=== PATIENT | male | born 1955 | race American Indian/Alaskan Native ===

== ENCOUNTER 2021-10-02 19:44 | Emergency (ER) | payer OTHER ==
[~2021-10-02 19:44] MED LIST: ATROPINE 0.1% (1 MG/10 ML) CARDIAC SYRINGE ONE; CALCIUM CHLORIDE 1,000 MG/10 ML SYRINGE IV ONE; EPINEPHrine 1 MG/10 ML SYRINGE ONE; SODIUM BICARB 8.4% 50 MEQ/50 ML SYRINGE IV ONE
--- NOTE | 2021-10-02 20:17 | Cat Scan Report ---
CT head/brain wo con INDICATION / CLINICAL INFORMATION: 66 years Male; CODE STROKE, LKW 1920, LEFT SIDE WEAKNESS SLURRED SPEECH, AMS [id number]. TECHNIQUE: Routine CT head without contrast. All CT scans at this location are performed using CT dos e reduction for ALARA by means of automated exposure control. Motion artifact present. COMPARISON: None. FINDINGS: BRAIN / INTRACRANIAL CONTENTS: Large lesion seen in the sella turcica, presumably representing a pitu itary macroadenoma, measuring 3 cm craniocaudally. There is mass effect on the optic chiasm. The lesi on also projects into the right sphenoid sinus, along its posterior, superior margin. No acute hemorrhage, mass effect, midline shift, hydrocephalus, or acute, large territorial infarct. No signs of significant atrophy or chronic infarct. No significant white matter abnormality seen. CRANIOCERVICAL JUNCTION: No significant abnormality. ORBITS: No significant abnormality of visualized orbits. SINUSES / MASTOIDS: Mild to moderate mucosal thickening seen in the maxillary antra. Small air-fluid levels noted. Mild to moderate mucosal thickening in the ethmoids. There is partial opacification of the left sphenoid sinus. Remote nasal bone and frontal process of the maxilla trauma suggested on the left. ADDITIONAL FINDINGS: None. IMPRESSION: 1. No focal intra-axial mass, hemorrhage, hydrocephalus, or acute, large territorial infarct. 2. 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 Follow-up with pre and postcontrast MRI of the pituitary, as clin ically warranted. 3. Sinus disease noted. Air-fluid levels seen in the maxillary antra, suggesting an acute component. CODE STROKE: Exam Completed (RADIATION THERAPY TECHNOLOGIST/CDT): 10/02/2021 7:02 PM Exam Reviewed (RADIATION THERAPY TECHNOLOGIST/CDT): 7:05 PM Time of Communication (RADIATION THERAPY TECHNOLOGIST/CDT): 7:09 PM Licensed Practitioner Receiving Report: Dr. Longoria Signer Name: Nikolas Hamilton MD, III Signed: 10/02/2021 8:13 PM Workstation Name: [email or web address]
--- NOTE | 2021-10-02 20:32 | Cat Scan Report ---
CT angio head INDICATION / CLINICAL INFORMATION: 66 years Male; CODE STROKE, LKW 1920, LEFT SIDE WEAKNESS SLURRED SPEECH, AMS [id number] 88ML OF OMNI PAQUE 350 GIVEN. TECHNIQUE: Thin cut axial images obtained through the head during IV bolus contrast administration. S agittal, coronal, and 3 plane MIP reconstructions performed by the technologist. NASCET type criteria used evaluate stenoses. Automated exposure control utilized for radiation reduction purposes. . COMPARISON: None available. FINDINGS: INTERNAL CAROTID ARTERIES: No significant narrowing appreciated. Mild atherosclerotic disease noted. VERTEBROBASILAR SYSTEM: No significant narrowing appreciated. DISTAL BRANCHES: Distal branches of the anterior, middle, and posterior cerebral arteries are fairly symmetric in appearance and number. ANEURYSM: None identified. ADDITIONAL FINDINGS: Large, presumed pituitary macroadenoma again noted. A portion of the lesion appe ars to project into the superior right sphenoid sinus and perhaps the left sphenoid sinus. IMPRESSION: 1. No significant narrowing or large vessel occlusion appreciated on this CTA of the head. Signer Name: Nikolas Hamilton MD, III Signed: 10/02/2021 8:27 PM Workstation Name: [email or web address] [id number]
--- NOTE | 2021-10-02 20:40 | Cat Scan Report ---
CT angio neck INDICATION / CLINICAL INFORMATION: 66 years Male; CODE STROKE, LKW 1920, LEFT SIDE WEAKNESS SLURRED SPEECH, AMS [id number], 88ML OF OMNI PAQUE 350. TECHNIQUE: Thin cut axial images obtained through the head during IV bolus contrast administration. S agittal, coronal, and 3 plane MIP reconstructions performed by the technologist. NASCET type criteria used evaluate stenoses. All CT scans at this location are performed using CT dose reduction for ALAR A by means of automated exposure control. . COMPARISON: None available. FINDINGS: ARCH: Normal aortic arch branching suggested. CAROTID ARTERIES: The visualized common and internal carotid arteries are patent. Atherosclerotic dis ease is seen in the carotid bifurcation region on the left, resulting in mild narrowing. There is vita e motion artifact which distorts imaging in this region. Carotid Doppler analysis may be of benefit, to ensure there is no significant narrowing present. Tortuous internal carotid arteries are noted-would question history of hypertension. VERTEBRAL ARTERIES: Slight left dominant vertebral system seen. Mild narrowing seen at the origin of the nondominant right vertebral artery. Tortuous vessels again noted-would question history of hypertension. ADDITIONAL FINDINGS: Mild disc disease seen at C4-5 and C3-4, which may encroach upon the cervical co rd. Borderline canal narrowing suggested at C4-C5. There may be significant disc disease at C6-7-left paracentral disc protrusion. Findings may affect the left anterior hemicord. Follow-up with MRI as c linically warranted. Moderate osseous foraminal narrowing on the right at C2-3, C3-4, and C6-7 from u ncinate and/or facet hypertrophy. Similar findings on the left at C6-7 from uncinate hypertrophy. IMPRESSION: 1. No definitive signs of hemodynamically significant stenosis appreciated. 2. There is motion artifact in the region of the carotid bifurcation on the right, which may partiall y obscure the proximal right ICA. Carotid Doppler analysis may be of benefit to ensure there is no si gnificant narrowing in this region. Signer Name: Nikolas Hamilton MD, III Signed: 10/02/2021 8:35 PM Workstation Name: [email or web address]
[2021-10-02 20:49] LABS: Hematocrit 32.8 % (35.5-45.6); Hemoglobin 11.6 gm/dl (11.8-15.2); Mean Corpuscular HGB Conc 35 % (32-34); Mean Corpuscular Volume 81 fl (84-94); Platelet Count 247 K/mm3 (140-440); Red Blood Count 4.05 M/mm3 (3.65-5.03); Red Cell Distribution Width 15.5 % (13.2-15.2)
[2021-10-02 21:14] LABS: Albumin 3.9 g/dL (3.9-5); Calcium 8.3 mg/dL (8.4-10.2)
[2021-10-02 21:34] LABS: INR 1.96 (0.87-1.13)
[2021-10-02 21:35] LABS: Partial Thromboplastin Time 33.4 Sec. (24.2-36.6); Thrombin Time 19.2 Sec. (15.1-19.6)
[2021-10-02] MEDS ORDERED: EPINEPHrine 30 MG/30 ML INJ IV ONE (21:42)
[2021-10-02 21:48] LABS: Band Neutrophils # (Manual) 0.1 K/mm3; Basophils % (Manual) 0 % (0.0-1.8); Eosinophils % (Manual) 0 % (0.0-4.3); Total Cells Counted 100
[2021-10-02 21:50] LABS: Platelet Estimate Consistent w Auto
--- NOTE | 2021-10-02 22:09 | XRay Report ---
CHEST 1 VIEW INDICATION: Post intubation. COMPARISON: None. FINDINGS: Support devices: Endotracheal tube tip is approximately 3-4 cm above the zuly. Heart: Stable. Lungs/Pleura: No acute pulmonary or pleural findings. IMPRESSION: 1. Endotracheal tube in satisfactory position. Signer Name: Solomon Madison MD Signed: 10/02/2021 10:05 PM Workstation Name: [id number]
[2021-10-02] MEDS ORDERED: MAGNESIUM SULFATE 1 GM in SODIUM CHLORIDE 0.9% 50 ML IV ONE (22:14)
--- NOTE | 2021-10-02 22:43 | Emergency Department Report ---
Blank Doc - Documentation Documentation: [facility] Consult Note # Demographics Consult Type: General Neurology Patient Location: Emergency Room First Name: agustin Last Name: cristy Date of : 1955 Age: 66 Gender: Male Facility: [facility] Time of Initial Page ( Time): 10/02/2021, 19:54 Time of Return Call ( Time): 10/02/2021, 19:54 # HPI History: 66yo M was found with AMS by . he is noted to be confused # Scores Time of exam and NIHSS ( Time): 10/02/2021, 20:00 Level of Consciousness 1a: [0] = Alert; keenly responsive LOC Questions 1b: [2] = Answers neither correctly LOC Commands 1c: [2] = Performs neither correctly Best Gaze 2: [0] = Normal Visual 3: [0] = No visual loss Facial Palsy 4: [0] = Normal symmetrical movements Motor Arm Left 5a: [2] = Some effort against gravity Motor Arm Right 5b: [2] = Some effort against gravity Motor Leg Left 6a: [3] = No effort against gravity Motor Leg Right 6b: [2] = Some effort against gravity Limb Ataxia 7: [0] = Absent Sensory 8: [0] = Normal Best Language 9: [2] = Severe aphasia Dysarthria 10: [2] = Severe dysarthria Extinction and Inattention 11: [0] = No abnormality NIHSS Total: 17 # Assessment Impression: Altered Mental Status # Plan Thrombolytic/Intervention: NOT IV Thrombolysis or IA Intervention candidate Thrombolytic/Intraarterial Exclusion: IV thrombolytic and IA intervention considered but not recommended as this patient's symptoms are not clinically consistent with an assumed diagnosis of stroke Other: I have discussed my recommendations with the referring provider Additional Recommendations: Metabolic and infectious evaluation recommended. If no cause found then MRI brain and EEG would be reasonable for next step in evaluation # Logistics Telemedicine: Interactive 2 way audio and visual telecommunication technology was utilized during this visit
[2021-10-02] MEDS ORDERED: NORepinephrine/NS 8 MG-250 ML 8 MG/250 ML INFUS..BTL IV SCH (23:00)
[2021-10-02] MEDS ORDERED: POTASSIUM CHLORIDE 10 MEQ 10 MEQ/100 ML BAG IV SCH (23:00)
--- NOTE | 2021-10-02 23:19 | Consultation ---
History of Present Illness Consult date: 10/02/21 Consult reason: cardiac arrest History of present illness: Called for left bundle branch on EKG post cardiac arrest in the ED. 66 year old male with unknown PMH presented via EMS for several days of weakness, altered mental status and initial concern for stroke. Patient was undergoing stroke work up in the ED when he had cardiac arrest (rhythm reported to be asystole). ROSC after 2-3 cycles of CPR. Work up revealed severe hypokalemia K 2.3, renal failure, troponin 0.19. Initial EKGs showed LBBB. I recommended repletion of potassium, repeat troponin and EKG. During this time, patient has multiple arrests with rhythm reported to be asystole. Post ROSC EKG after second arrest showed complete heart block, RBBB, and ST depressions in V2-V6 without ST elevation. While on the phone with the ED physician, patient had another cardiac arrest. On my arrival to the ED, patient had . He never had VT/VF and all the arrest rhythms were reported to be asystole. Suspect etiology of arrest was severe hypokalemia. Patient was too unstable to go to the microbiology lab manager for coronary evaluation with multiple arrests in the ED. William Carrington MD Interventional Cardiology Medications and Allergies Allergies Allergy/AdvReac Type Severity Reaction Status Date / Time No Known Allergies Allergy Unverified 10/02/21 20:22 Active Meds: Active Medications Potassium Chloride (Kcl 10meq/100ml) 10 meq in 100 mls @ 100 mls/hr IV Q1H EDIS Stop: 10/03/21 02:59 Magnesium Sulfate 1 gm/ Sodium (Chloride) 52 mls @ 52 mls/hr IV ONCE ONE Stop: 10/02/21 23:13 NORepinephrine/NS 8 MG-250 ML (Norepinephrine/Ns 8 Mg-250 Ml (Double Conc)) 8 mg in 250 mls @ 3.75 mls/hr IV TITRATE EDIS; Protocol Physical Examination Vital Signs Temp Pulse Resp BP Pulse Ox 98 F 90 20 195/78 95 10/02/21 19:44 10/02/21 19:44 10/02/21 19:44 10/02/21 19:44 10/02/21 19:44 Results 10/02/21 20:29 10/02/21 20:29 Cardiac Enzymes 08/07/22 Range/Units 20:29 AST 372 H (5-40) units/L CK-MB (CK-2) 100.0 H (0.0-4.0) ng/mL Coagulation 10/02/21 Range/Units 20:29 PT 25.3 H (12.2-14.9) Sec. INR 1.96 H (0.87-1.13) APTT 33.4 (24.2-36.6) Sec. CBC 10/02/21 Range/Units 20:29 WBC 13.7 H (4.5-11.0) K/mm3 RBC 4.05 (3.65-5.03) M/mm3 Hgb 11.6 L (11.8-15.2) gm/dl Hct 32.8 L (35.5-45.6) % Plt Count 247 (140-440) K/mm3 Comprehensive Metabolic Panel 10/02/21 Range/Units 20:29 Sodium 127 L (137-145) mmol/L Potassium 2.3 L* (3.6-5.0) mmol/L Chloride 85.7 L (98-107) mmol/L Carbon Dioxide 21 L (22-30) mmol/L BUN 63 H (9-20) mg/dL Creatinine 5.2 H (0.8-1.3) mg/dL Glucose 147 H (75-100) mg/dL Calcium 8.3 L (8.4-10.2) mg/dL AST 372 H (5-40) units/L ALT 101 H (7-56) units/L Alkaline Phosphatase 82 (35-129) units/L Total Protein 7.9 (6.3-8.2) g/dL Albumin 3.9 (3.9-5) g/dL
[2021-10-02 23:35] LABS: Chol/HDL Ratio 3.96 %
--- NOTE | 2021-10-02 23:41 | Emergency Department Report ---
ED Altered Mental Status HPI - General Chief Complaint: Neuro Symptoms/Deficit Stated Complaint: STROKE Time Seen by Provider: 10/02/21 19:45 Source: EMS Mode of arrival: Stretcher Limitations: Altered Mental Status - History of Present Illness Initial Comments: Patient is a 66-year-old male brought in from home by EMS for altered mental status. reports patient fell while in the restroom and had a fall and called out to her to help him up. States he was able to grab the side of the bathtub to help himself up and fell again and began to mumble. EMS noted patient altered with left-sided weakness upon arrival and suspected acute CVA. On arrival patient is altered without any focal deficits. - Related Data Allergies Allergy/AdvReac Type Severity Reaction Status Date / Time No Known Allergies Allergy Unverified 10/02/21 20:22 ED Review of Systems ROS: Stated complaint: STROKE Other details as noted in HPI Comment: Unobtainable due to pts medical conditions ED Past Medical Hx - Past Medical History Previous Medical History?: Yes Hx Hypertension: Yes - Surgical History Past Surgical History?: No - Social History Smoking Status: Never Smoker Substance Use Type: None ED Physical Exam - General Limitations: Altered Mental Status General appearance: other (Altered) - Head Head exam: Present: atraumatic, normocephalic - Eye Eye exam: Present: normal appearance, PERRL, EOMI - Respiratory Respiratory exam: Present: normal lung sounds bilaterally. Absent: respiratory distress - Cardiovascular Cardiovascular Exam: Present: regular rate, normal rhythm, normal heart sounds - GI/Abdominal GI/Abdominal exam: Present: soft. Absent: distended - Rectal Rectal exam: Present: deferred - Extremities Exam Extremities exam: Absent: pedal edema - Neurological Exam Neurological exam: Present: altered - Skin Skin exam: Present: warm, dry, intact, normal color ED Course Vital Signs 10/02/21 10/02/21 10/02/21 19:44 19:46 20:11 Temperature 98 F Pulse Rate 90 Respiratory 20 Rate Blood Pressure 195/78 O2 Sat by Pulse 95 96 98 Oximetry 10/02/21 20:15 Temperature Pulse Rate 89 Respiratory 15 Rate Blood Pressure 195/78 O2 Sat by Pulse 97 Oximetry - Lab Data Result diagrams: 10/02/21 20:29 10/02/21 20:29 Lab Results 10/02/21 10/02/2122 Range/Units 20:26 20:29 20:29 WBC 13.7 H (4.5-11.0) K/mm3 RBC 4.05 (3.65-5.03) M/mm3 Hgb 11.6 L (11.8-15.2) gm/dl Hct 32.8 L (35.5-45.6) % MCV 81 L (84-94) fl MCH 29 (28-32) pg MCHC 35 H (32-34) % RDW 15.5 H (13.2-15.2) % Plt Count 247 (140-440) K/mm3 Add Manual Diff Complete Total Counted 100 Seg Neutrophils % Monitoring Manager Seg Neuts % (Manual) 86.0 H (40.0-70.0) % Band Neutrophils % 1.0 % Lymphocytes % (Manual) 6.0 L (13.4-35.0) % Reactive Lymphs % (Man) 0 % Monocytes % (Manual) 7.0 (0.0-7.3) % Eosinophils % (Manual) 0 (0.0-4.3) % Basophils % (Manual) 0 (0.0-1.8) % Metamyelocytes % 0 % Myelocytes % 0 % Promyelocytes % 0 % Blast Cells % 0 % Nucleated RBC % Not Reportable Seg Neutrophils # Man 11.8 H (1.8-7.7) K/mm3 Band Neutrophils # 0.1 K/mm3 Lymphocytes # (Manual) 0.8 L (1.2-5.4) K/mm3 Abs React Lymphs (Man) 0.0 K/mm3 Monocytes # (Manual) 1.0 H (0.0-0.8) K/mm3 Eosinophils # (Manual) 0.0 (0.0-0.4) K/mm3 Basophils # (Manual) 0.0 (0.0-0.1) K/mm3 Metamyelocytes # 0.0 K/mm3 Myelocytes # 0.0 K/mm3 Promyelocytes # 0.0 K/mm3 Blast Cells # 0.0 K/mm3 WBC Morphology Not Reportable Hypersegmented Neuts Not Reportable Hyposegmented Neuts Not Reportable Hypogranular Neuts Not Reportable Smudge Cells Not Reportable Toxic Granulation Not Reportable Toxic Vacuolation Not Reportable Dohle Bodies Not Reportable Pelger-Huet Anomaly Not Reportable Tory Rods Not Reportable Platelet Estimate Consistent w auto Clumped Platelets Not Reportable Plt Clumps, EDTA Not Reportable Large Platelets Not Reportable Giant Platelets Not Reportable Platelet Satelliting Not Reportable Plt Morphology Comment Not Reportable RBC Morphology Not Reportable Dimorphic RBCs Not Reportable Polychromasia Not Reportable Hypochromasia Not Reportable Poikilocytosis Not Reportable Anisocytosis Not Reportable Microcytosis Not Reportable Macrocytosis Not Reportable Spherocytes Not Reportable Pappenheimer Bodies Not Reportable Sickle Cells Not Reportable Target Cells Not Reportable Tear Drop Cells Not Reportable Ovalocytes Not Reportable Helmet Cells Not Reportable Rai-[place] Bodies Not Reportable [address] Rings Not Reportable [place] Cells Not Reportable Bite Cells Not Reportable Crenated Cell Not Reportable Elliptocytes Not Reportable Acanthocytes (Spur) Not Reportable Rouleaux Not Reportable Hemoglobin C Crystals Not Reportable Schistocytes Not Reportable Malaria parasites Not Reportable Arun Bodies Not Reportable Hem Pathologist Commnt No PT 25.3 H (12.2-14.9) Sec. INR 1.96 H (0.87-1.13) APTT 33.4 (24.2-36.6) Sec. Thrombin Time 19.2 (15.1-19.6) Sec. Sodium (137-145) mmol/L Potassium (3.6-5.0) mmol/L Chloride (98-107) mmol/L Carbon Dioxide (22-30) mmol/L Anion Gap mmol/L BUN (9-20) mg/dL Creatinine (0.8-1.3) mg/dL Estimated GFR ml/min BUN/Creatinine Ratio % Glucose (75-100) mg/dL POC Glucose 136 H (70-105) mg/dL Calcium (8.4-10.2) mg/dL Magnesium (1.7-2.3) mg/dL Total Bilirubin (0.1-1.2) mg/dL AST (5-40) units/L ALT (7-56) units/L Alkaline Phosphatase (35-129) units/L Total Creatine Kinase (55-170) units/L CK-MB (CK-2) (0.0-4.0) ng/mL CK-MB (CK-2) Rel Index (0-4) Troponin T (0.00-0.029) ng/mL Total Protein (6.3-8.2) g/dL Albumin (3.9-5) g/dL Albumin/Globulin Ratio % Plasma/Serum Alcohol (0-0.07) % 10/02/21 10/02/21 10/02/21 Range/Units 20:29 20:29 22:16 WBC (4.5-11.0) K/mm3 RBC (3.65-5.03) M/mm3 Hgb (11.8-15.2) gm/dl Hct (35.5-45.6) % MCV (84-94) fl MCH (28-32) pg MCHC (32-34) % RDW (13.2-15.2) % Plt Count (140-440) K/mm3 Add Manual Diff Total Counted Seg Neutrophils % Seg Neuts % (Manual) (40.0-70.0) % Band Neutrophils % % Lymphocytes % (Manual) (13.4-35.0) % Reactive Lymphs % (Man) % Monocytes % (Manual) (0.0-7.3) % Eosinophils % (Manual) (0.0-4.3) % Basophils % (Manual) (0.0-1.8) % Metamyelocytes % % Myelocytes % % Promyelocytes % % Blast Cells % % Nucleated RBC % Seg Neutrophils # Man (1.8-7.7) K/mm3 Band Neutrophils # K/mm3 Lymphocytes # (Manual) (1.2-5.4) K/mm3 Abs React Lymphs (Man) K/mm3 Monocytes # (Manual) (0.0-0.8) K/mm3 Eosinophils # (Manual) (0.0-0.4) K/mm3 Basophils # (Manual) (0.0-0.1) K/mm3 Metamyelocytes # K/mm3 Myelocytes # K/mm3 Promyelocytes # K/mm3 Blast Cells # K/mm3 WBC Morphology Hypersegmented Neuts Hyposegmented Neuts Hypogranular Neuts Smudge Cells Toxic Granulation Toxic Vacuolation Dohle Bodies Pelger-Huet Anomaly Tory Rods Platelet Estimate Clumped Platelets Plt Clumps, EDTA Large Platelets Giant Platelets Platelet Satelliting Plt Morphology Comment RBC Morphology Dimorphic RBCs Polychromasia Hypochromasia Poikilocytosis Anisocytosis Microcytosis Macrocytosis Spherocytes Pappenheimer Bodies Sickle Cells Target Cells Tear Drop Cells Ovalocytes Helmet Cells Rai-[place] Bodies [address] Rings Florencio Cells Bite Cells Crenated Cell Elliptocytes Acanthocytes (Spur) Rouleaux Hemoglobin C Crystals Schistocytes Malaria parasites Arun Bodies Hem Pathologist Commnt PT (12.2-14.9) Sec. INR (0.87-1.13) APTT (24.2-36.6) Sec. Thrombin Time (15.1-19.6) Sec. Sodium 127 L (137-145) mmol/L Potassium 2.3 L* (3.6-5.0) mmol/L Chloride 85.7 L (98-107) mmol/L Carbon Dioxide 21 L (22-30) mmol/L Anion Gap 23 mmol/L BUN 63 H (9-20) mg/dL Creatinine 5.2 H (0.8-1.3) mg/dL Estimated GFR 14 ml/min BUN/Creatinine Ratio 12 % Glucose 147 H (75-100) mg/dL POC Glucose (70-105) mg/dL Calcium 8.3 L (8.4-10.2) mg/dL Magnesium 1.40 L (1.7-2.3) mg/dL Total Bilirubin 2.00 H (0.1-1.2) mg/dL AST 372 H (5-40) units/L ALT 101 H (7-56) units/L Alkaline Phosphatase 82 (35-129) units/L Total Creatine Kinase 57769 H (55-170) units/L CK-MB (CK-2) 100.0 H (0.0-4.0) ng/mL CK-MB (CK-2) Rel Index 0.5 (0-4) Troponin T 0.190 H* (0.00-0.029) ng/mL Total Protein 7.9 (6.3-8.2) g/dL Albumin 3.9 (3.9-5) g/dL Albumin/Globulin Ratio 1.0 % Plasma/Serum Alcohol < 0.01 (0-0.07) % - Medical Decision Making Patient brought in by EMS for altered mental status. Code stroke initiated. Patient sent to CT after my evaluation upon arrival. CT head showed pituitary macroadenoma however no acute stroke. CTA head and neck are unremarkable. EKG shows left bundle branch block. No prior EKG available for comparison. Laboratory evaluation reveals troponin of 0.19, serum potassium of 2.3, calcium of 8.3. Creatinine 5.2. I was notified by the nurse that patient began to bradycardia down. I went to reevaluate the patient and shortly thereafter he lost his pulse. ACLS measures were initiated. We were able to obtain ROSC. During that time I contacted on-call cash checker to discuss the patient. [place] this was most likely due to patient's hypokalemia and recommended serial troponins and EKGs. IV potassium chloride ordered along with epi drip, IV magnesium sulfate. Patient went into PEA requiring further ACLS measures. We were able to obtain ROSC several more times however patient would lose his pulse several minutes after regaining his pulse. After roughly an hour of combined resuscitative efforts the decision was made to discontinue further attempts. Critical Care Time: Yes Critical care time in (mins) excluding proc time.: 80 Critical care attestation.: If time is entered above; I have spent that time in minutes in the direct care of this critically ill patient, excluding procedure time. ED Disposition Clinical Impression: Cardiac arrest, Hypokalemia, Acute renal failure Disposition: 20 Is pt being admited?: No
[2021-10-03 06:24] VITALS: BP 75/31
--- NOTE | 2021-10-03 10:21 | Electrocardiograph Report ---
[facility] Test Date: 2021-10-02 Test Time: 21:44:05 Pat Name: BRIDGET GONZALEZ Department: Room: Gender: M Dermatology Physician: GRACY : 1955 Requested By: PATRICE GAVIRIA Order Number: [id number] Reading MD: Ashley Ortega Measurements Intervals [place] Rate: 111 P: 35 WI: 166 QRS: 62 QRSD: 180 T: 235 QT: 388 QTc: 526 Interpretive Statements Wide-complex tachycardia Consider sinus tachycardia with left bundle branch block morphology No previous ECG available for comparison Electronically Signed On 10-03-2021 10:21:36 EDT by Ashley Ortega
--- NOTE | 2021-10-05 10:38 | Electrocardiograph Report ---
[facility] Test Date: 2021-10-02 Test Time: 20:07:29 Pat Name: BRIDGET GONZALEZ Department: Room: Gender: M Telephone Order Clerk: GRACY : 1955 Requested By: PATRICE GAVIRIA Order Number: [id number] Reading MD: Dat Sarmiento Measurements Intervals [place] Rate: 91 P: 17 MT: 236 QRS: 60 QRSD: 176 T: 244 QT: 396 QTc: 487 Interpretive Statements Sinus rhythm Prolonged MT interval Probable left atrial enlargement Left bundle branch block ST elevation secondary to IVCD No previous ECG available for comparison Electronically Signed On 10-05-2021 10:37:56 EDT by Dat Sarmiento
--- NOTE | 2021-10-05 10:39 | Electrocardiograph Report ---
[facility] Test Date: 2021-10-02 Test Time: 22:18:19 Pat Name: BRIDGET GONZALEZ Department: Room: Gender: M Card Scraper: GRACY : 1955 Requested By: PATRICE GAVIRIA Order Number: [id number] Reading MD: Dat Sarmiento Measurements Intervals [place] Rate: 56 P: 0 SD: QRS: -25 QRSD: 176 T: 97 QT: 472 QTc: 454 Interpretive Statements Complete AV block with wide QRS complex Right bundle branch block Compared to ECG 10/02/2021 21:44:05 AV block, complete (third-degree) now present Right bundle-branch block now present Electronically Signed On 10-05-2021 10:38:53 EDT by Dat Sarmiento
== END 2021-10-03 06:00 ==
LOC: ED 19:44
DX: I46.9 Cardiac arrest, cause unspecified (principal); E87.6 Hypokalemia; N17.9 Acute kidney failure, unspecified; I10 Essential (primary) hypertension; Z79.899 Other long term (current) drug therapy; R51.9 Headache, unspecified
CPT/HCPCS: 36415; 70450; 70496; 70498; 71045; 80053; 80061; 82550; 82553; 82962; 83735; 84484; 85007; 85025; 85610; 85670; 85730; 92950; 93005; 99291; 99292; J0171; J0461; J3475; J3480; J3490; Q9967; 80320; 94002; G0480